=== PATIENT | male | born 1955 | race Caucasian/White ===

== ENCOUNTER 2017-07-30 09:15 | Inpatient (IN) | payer OTHER ==
[2017-07-30 10:09] LABS: ABNORMAL IP MESSAGE 1; MEAN CORPUSCULAR HEMOGLOBIN 16.2 pg (29.0-33.0); MEAN CORPUSCULAR HGB CONC 26.5 g/dl (32.0-37.0); MEAN PLATELET VOLUME 9.1 fl (7.4-10.4); NUCLEATED RED BLOOD CELLS% 0.3 /100WBC (0.0-0.0); PLATELET COUNT 822 10^3/UL (140-415); POSITIVE DIFF @See below; RED BLOOD COUNT 3.28 10^6/ul (4.70-6.10); RED CELL DISTRIBUTION WIDTH 22.8 % (11.5-14.5)
[2017-07-30 10:09] LABS: WHITE BLOOD COUNT 10.9 10^3/ul (4.8-10.8)
[2017-07-30 10:17] LABS: ADD MAN DIFF? YES; HEMOGLOBIN 5.3 g/dl (14.0-18.0)
[2017-07-30 10:28] LABS: ALANINE AMINOTRANSFERASE 33 IU/L (13-69); ALBUMIN 3.9 g/dl (3.3-4.9); ALBUMIN/GLOBULIN RATIO 1.21; ALKALINE PHOSPHATASE 88 IU/L (42-121); ANION GAP 18 (8-16); ASPARTATE AMINO TRANSFERASE 69 IU/L (15-46); BLOOD UREA NITROGEN 14 mg/dl (7-20); CALCIUM 9.2 mg/dl (8.4-10.2); CARBON DIOXIDE 25 mmol/L (21-31); CHLORIDE 104 mmol/L (97-110); GLUCOSE 137 mg/dl (70-220); POTASSIUM 4.2 mmol/L (3.5-5.1); SODIUM 143 mmol/L (135-144); TOTAL PROTEIN 7.1 g/dl (6.1-8.1)
[2017-07-30 10:37] LABS: INR 1.09; PROTIME 14.2 Sec (11.9-14.9); PT RATIO 1.1
[2017-07-30 10:43] LABS: TROPONIN-I < 0.012 ng/ml (0.00-0.12)
[2017-07-30 11:17] LABS: ANISOCYTOSIS 3+ (0-0); BAND NEUTROPHILS #M 0.2 10^3/ul (0.0-0.6); BAND NEUTROPHILS % (M) 2 % (0-4); BASOPHIL #M 0.2 10^3/ul (0.0-0.0); BASOPHILS % (M) 2 % (0-2); EOSINOPHILS % (M) 1 % (0-7); ERYTHROBLAST% (NRBC) (M) 1 % (0-0); GIANT THROMBO% (M) 2 % (0-0); HYPOCHROMASIA 3+ (0-0); LYMPHOCYTES #M 0.6 10^3/ul (0.8-2.9); LYMPHOCYTES % (M) 6 % (15-51); MICROCYTOSIS 3+ (0-0); MONOCYTE #M 0.1 10^3/ul (0.3-0.9); MONOCYTES % (M) 1 % (0-11); MYELOCYTES #M 0.1 10^3/ul (0.0-0.0); MYELOCYTES % (M) 1 % (0-0); PLATELET ESTIMATE INCREASED; POIKILOCYTOSIS 1+ (0-0); POLYCHROMASIA 3+ (0-0); SEG NEUT #M 9.5 10^3/ul (1.6-7.5); SEGMENTED NEUTROPHILS (M) % 87 % (39-77); SMUDGE%M 1 % (0-0)
[2017-07-30 12:41] LABS: IMMEDIATE SPIN CROSSMATCH 1 4
[2017-07-30] MEDS ORDERED: ACETAMINOPHEN 325 MG TAB PO (13:00)
[2017-07-30] MEDS: SOD CHLORIDE 0.9% 250 ML IV (13:01)
[2017-07-30] MEDS ORDERED: DOCUSATE SODIUM 100 MG CAP PO (14:30)
[2017-07-30] MEDS ORDERED: NACL 0.9% 3 ML SYG IV (14:30)
[2017-07-30] MEDS: HYDROmorphONE 0.5 MG/0.5 ML SYG IV (14:51)
[2017-07-30] MEDS: ONDANSETRON 4 MG INJ IV (14:51)
[2017-07-30] MEDS ORDERED: GLUCOSE GEL 15 GRAM TUBE PO ×2 (15:00)
[2017-07-30] MEDS ORDERED: DEXTROSE 50% 50 ML SYRINGE IV ×2 (15:00)
[2017-07-30] MEDS ORDERED: GLUCOSE GEL 15 GRAM TUBE BUCCAL (15:00)
[2017-07-30] MEDS ORDERED: GLUCAGON 1 MG INJ IM (15:00)
[2017-07-30 15:42] LABS: HEMOGLOBIN 6.3 g/dl (14.0-18.0)
[2017-07-30 15:44] LABS: ADD UMIC NO; UR ASCORBIC ACID NEGATIVE (NEGATIVE); UR BILIRUBIN (Dip) NEGATIVE (NEGATIVE); UR BLOOD (Dip) NEGATIVE (NEGATIVE); UR CLARITY CLEAR (CLEAR); UR COLOR YELLOW (YELLOW); UR GLUCOSE (Dip) 3+ mg/dL (NEGATIVE); UR KETONES (Dip) NEGATIVE (NEGATIVE); UR LEUKOCYTE ESTERASE (Dip) NEGATIVE Leu/ul (NEGATIVE); UR NITRITE (Dip) NEGATIVE (NEGATIVE); UR SPECIFIC GRAVITY (Dip) 1.014 (1.003-1.030); UR TOTAL PROTEIN (Dip) NEGATIVE (NEGATIVE); UR UROBILINOGEN (Dip) NEGATIVE (NEGATIVE)
[2017-07-30] MEDS: SOD CHLORIDE 0.9% 1,000 ML IV (15:58)
[2017-07-30] MEDS: SOD FERRIC GLUC COMPLX 125 MG in SOD CHLORIDE 0.9% 100 ML IVPB (15:58)
[2017-07-30] MEDS: FOLIC ACID 1 MG TAB PO (15:58)
[2017-07-30] MEDS: INSULIN ASPART [NOVOLOG] 3 ML PEN SC ×2 (18:35→20:15)
[2017-07-30] MEDS: QUETIAPINE 25 MG TAB PO (20:17)
[2017-07-30] MEDS: GABAPENTIN 300 MG CAP PO (20:17)
[2017-07-30] MEDS: OLANZAPINE 5 MG TAB PO (20:17)
[2017-07-30] MEDS: INSULIN GLARGINE [LANtus] 3 ML PEN SC (20:19)
[2017-07-30 22:23] LABS: HEMATOCRIT 23.2 % (42.0-52.0)
[2017-07-30 22:36] LABS: HEMOGLOBIN 6.8 g/dl (14.0-18.0)
[2017-07-30] MEDS: FUROSEMIDE 20 MG INJ IV ×2 (23:24→23:41)
[2017-07-30] MEDS: HYDROCODONE/APAP (10/325) TAB PO (23:27)
[2017-07-31] MEDS: FUROSEMIDE 20 MG INJ IV (01:48)
[2017-07-31] MEDS: ACCU-CHEK XX (02:00)
[2017-07-31] MEDS: SOD CHLORIDE 0.9% 1,000 ML IV ×2 (02:20→10:44)
[2017-07-31] MEDS: ACETAMINOPHEN 325 MG TAB PO (02:20)
[2017-07-31] MEDS ORDERED: LORAZEPAM 1 MG TAB PO (02:30)
[2017-07-31] MEDS ORDERED: VANCOMYCIN IV PER PHARMACY XX (02:30)
[2017-07-31] MEDS ORDERED: ONDANSETRON 4 MG INJ IV (02:30)
[2017-07-31] MEDS ORDERED: FLUCONAZOLE 400 MG/NS (PMX) 200 ML IVPB (03:30)
[2017-07-31] MEDS: SCOPOLAMINE 1.5 MG PATCH TRANSDERM (03:58)
[2017-07-31] MEDS ORDERED: PANTOPRAZOLE (EC) 40 MG TAB PO (06:00)
[2017-07-31] MEDS: PANTOPRAZOLE 40 MG INJ IV ×2 (06:29→17:03)
[2017-07-31] MEDS: PIPER-TAZO 3.375 GM IV (PMX) 100 ML IVPB ×2 (06:29→13:18)
[2017-07-31] MEDS: morphine (ER) 30 MG TAB PO ×2 (06:30→13:21)
[2017-07-31 07:39] LABS: ADD MAN DIFF? NO
[2017-07-31 07:41] LABS: WHITE BLOOD COUNT 11.6 10^3/ul (4.8-10.8)
[2017-07-31 07:41] LABS: ABNORMAL IP MESSAGE 1; BASOPHIL # 0.1 10^3/ul (0.0-0.1); BASOPHILS % 0.4 % (0.0-2.0); EOSINOPHILS # 0.1 10^3/ul (0.0-0.5); EOSINOPHILS % 0.5 % (0.0-7.0); HEMATOCRIT 26.3 % (42.0-52.0); HEMOGLOBIN 7.8 g/dl (14.0-18.0); LYMPHOCYTES # 1.6 10^3/ul (0.8-2.9); LYMPHOCYTES % 14.1 % (15.0-51.0); MEAN CORPUSCULAR HEMOGLOBIN 19.7 pg (29.0-33.0); MEAN CORPUSCULAR HGB CONC 29.7 g/dl (32.0-37.0); MEAN CORPUSCULAR VOLUME 66.4 fl (82.0-101.0); MEAN PLATELET VOLUME 9.3 fl (7.4-10.4); MONOCYTE # 1.4 10^3/ul (0.3-0.9); MONOCYTES % 11.6 % (0.0-11.0); NEUTROPHIL # 8.4 10^3/ul (1.6-7.5); NEUTROPHILS % 71.9 % (39.0-77.0); NUCLEATED RED BLOOD CELLS% 0.2 /100WBC (0.0-0.0); POSITIVE DIFF @See below; RED BLOOD COUNT 3.96 10^6/ul (4.70-6.10); RED CELL DISTRIBUTION WIDTH 26.5 % (11.5-14.5)
[2017-07-31 07:45] LABS: PLATELET COUNT 701 10^3/UL (140-415)
[2017-07-31] MEDS: INSULIN ASPART [NOVOLOG] 3 ML PEN SC ×3 (08:00→17:22)
[2017-07-31 08:11] LABS: ALANINE AMINOTRANSFERASE 36 IU/L (13-69); ALBUMIN 3.7 g/dl (3.3-4.9); ALBUMIN/GLOBULIN RATIO 1.15; ALKALINE PHOSPHATASE 77 IU/L (42-121); ANION GAP 15 (8-16); ASPARTATE AMINO TRANSFERASE 74 IU/L (15-46); BILIRUBIN,INDIRECT 0.5 mg/dl (0-1.1); BILIRUBIN,TOTAL 0.5 mg/dl (0.2-1.3); BLOOD UREA NITROGEN 16 mg/dl (7-20); CALCIUM 9.2 mg/dl (8.4-10.2); CARBON DIOXIDE 26 mmol/L (21-31); CHLORIDE 106 mmol/L (97-110); CREATININE 1.13 mg/dl (0.61-1.24); GLUCOSE 67 mg/dl (70-220); MAGNESIUM 1.6 mg/dl (1.7-2.5); PHOSPHORUS 4.2 mg/dl (2.5-4.9); POTASSIUM 3.9 mmol/L (3.5-5.1); SODIUM 143 mmol/L (135-144); TOTAL PROTEIN 6.9 g/dl (6.1-8.1)
[2017-07-31] MEDS ORDERED: FERROUS SULFATE (EC) 325 MG TAB PO (09:00)
[2017-07-31] MEDS ORDERED: LISINOPRIL 5 MG TAB PO (09:00)
[2017-07-31] MEDS ORDERED: ERGOCALCIFEROL (8000 UNITS/ML PO SYG) PO (09:00)
[2017-07-31] MEDS: FOLIC ACID 1 MG TAB PO (09:01)
[2017-07-31] MEDS: INSULIN GLARGINE [LANtus] 3 ML PEN SC (09:05)
[2017-07-31 09:33] LABS: PATH REVIEW CH
[2017-07-31] MEDS: ERGOCALCIFEROL (8000 UNITS/ML PO SYG) PO (09:45)
[2017-07-31] MEDS: LEVOTHYROXINE 75 MCG TAB PO (09:45)
[2017-07-31] MEDS: OXYCODONE/ACETAMINOPHEN (10/325) TAB PO (10:45)
[2017-07-31] MEDS: SOD FERRIC GLUC COMPLX 125 MG in SOD CHLORIDE 0.9% 100 ML IVPB (16:40)
[2017-07-31 17:27] LABS: HEMATOCRIT 31.4 % (42.0-52.0); HEMOGLOBIN 9.5 g/dl (14.0-18.0)
[2017-07-31] MEDS ORDERED: ATORVASTATIN 10 MG TAB PO (21:00)
== END 2017-07-31 18:50 | disposition home or self-care (01) | DRG 375 ==
LOC: MS4 07-31 00:40 → E/R 09:15 → PP2 12:34
PROVIDERS: Pediatrics Neonatal-Perinatal Medicine
PROC: 30233N1 Transfusion of Nonautologous Red Blood Cells into Peripheral Vein, Percutaneous Approach (ICD-10-PCS; principal; 2017-07-30)
DX: C19 Malignant neoplasm of rectosigmoid junction (principal); C78.7 Secondary malignant neoplasm of liver and intrahepatic bile duct; E11.9 Type 2 diabetes mellitus without complications; Z79.4 Long term (current) use of insulin; R00.0 Tachycardia, unspecified; R50.9 Fever, unspecified; D63.0 Anemia in neoplastic disease; D50.0 Iron deficiency anemia secondary to blood loss (chronic)
CPT/HCPCS: 36415; 36430; 80053; 81003; 82962; 83735; 84100; 84484; 85014; 85018; 85025; 85610; 85730; 86850; 86900; 86901; 86920; 87040; 87086; 93005; 96374; 96375; 99291-25